=== PATIENT | female | born 1955 | race Caucasian/White ===

== ENCOUNTER 2017-02-24 08:23 | Observation (INO) | payer BC ==
[~2017-02-24] VITALS: Ht 162.6 cm; Wt 88.4 kg
[~2017-02-24 08:23] MED LIST: LIDODERM 5% P1 PATCH TD; LISINOPRIL20 MG PO; MOBIC15 MG PO; NORCO 7.5/321 TABLET PO; PREDNISONE20 MG PO
[2017-02-24 08:58] LABS: BASOPHIL (%) 0.8 % (0-1); EOSINOPHIL (%) 2.7 % (0-5); EOSINOPHIL COUNT 0.1 K/uL (0-0.3); HEMATOCRIT 42.6 % (36.0-46.0); HEMOGLOBIN 13.9 G/DL (11.9-15.5); IMMATURE GRANULOCYTE (%) 0.4 % (0.0-0.7); LYMPHOCYTE (%) 30.4 % (15-42); LYMPHOCYTE COUNT 1.5 K/uL (1.0-2.8); MCH 27.1 PG (29.0-34.0); MCHC 32.6 G/DL (30.0-36.0); MCV 83.2 FL (83-99); MONOCYTE (%) 5.8 % (3-12); MONOCYTE COUNT 0.3 K/uL (0-0.8); NEUTROPHIL (%) 59.9 % (45-76); NEUTROPHIL COUNT 2.9 K/uL (1.8-6.4); PLATELET COUNT 143 K/uL (156-360); RBC DIS.WIDTH-CV 13.1 % (11.8-14.6); RBC DIS.WIDTH-SD 39.8 % (39-53); RED BLOOD COUNT 5.12 M/uL (3.80-5.20); WHITE BLOOD COUNT 4.8 K/uL (4.1-10.2)
[2017-02-24 09:04] LABS: CHLORIDE 109 mEq/L (99-109); POTASSIUM 3.9 mEq/L (3.7-5.4); SODIUM 141 mEq/L (136-147)
[2017-02-24 09:06] LABS: GLUCOSE 142 mg/dL (70-99)
[2017-02-24 09:10] LABS: CREATININE 0.9 mg/dL (0.6-1.3); GFR ESTIMATE (CALCULATED) > 59 mL/min/
[2017-02-24 09:11] LABS: UREA NITROGEN (BUN) 14 mg/dL (9-23)
[2017-02-24 13:04] LABS: C-REACTIVE PROTEIN 3.5 MG/L (0-10)
[2017-02-24 14:06] LABS: HEMOGLOBIN A1c (GLYCOHEMOGLOB) 5.8 % HGB (Below 5.7)
[2017-02-24 17:24] VITALS: BP 132/78
[2017-02-24 19:37] VITALS: BP 124/87
[2017-02-24 23:33] VITALS: BP 123/60
[2017-02-25 04:17] VITALS: BP 107/52
[2017-02-25 08:30] VITALS: BP 115/60
[2017-02-25] MEDS ORDERED: ANTIVERT25 MG PO (11:09)
[2017-02-25] MEDS ORDERED: PREDNISONE10 MG PO (11:09)
[2017-02-25 12:46] VITALS: BP 132/61
== END 2017-02-25 14:11 | disposition home or self-care (01) ==
LOC: EME 08:23 → EDOF 12:10 → 5WEST 12:10 → EDOF 12:10 → ENRESERV 12:11 → CANRESERV 15:40 → ENRESERV 15:40 → 5WEST 17:13
PROVIDERS: Emergency Medicine; Internal Medicine
DX: H81.20 Vestibular neuronitis, unspecified ear (principal); R11.2 Nausea with vomiting, unspecified; I10 Essential (primary) hypertension; R26.89 Other abnormalities of gait and mobility; Z96.651 Presence of right artificial knee joint; Z82.3 Family history of stroke; Z83.6 Family history of other diseases of the respiratory system
CPT/HCPCS: 70450; 80048; 83036; 85025; 85651; 86140; 93005; 99281; 99284; G0378; J1650; J2060; J2405; J2930; J7030; J7512